=== PATIENT | male | born 1930 | race Caucasian/White ===

== ENCOUNTER 2016-05-27 11:13 | Outpatient (CLI) ==
[2014-09-19 16:38] VITALS: BMI 35.6
--- NOTE | 2016-05-27 12:14 | CT ---
EXAM: CT chest without contrast. HISTORY: Shortness of breath. COMPARISON: 01/01/2014. TECHNIQUE: Multiple axial images of the chest were obtained without intravenous contrast. Images w ere reformatted in the sagittal and coronal planes. FINDINGS: Evaluation for lymphadenopathy is limited due to lack of intravenous contrast. Heart siz e is normal. Atherosclerotic calcifications present. No pericardial effusion identified. Left diaphragm is elevated, and there is chronic, stable left basilar consolidation. Left upper lob e micronodule on axial image 15 is stable. Calcified granulomatous changes are present. The lungs otherwise clear without pleural effusion or pneumothorax. Limited images of the upper abdomen demonstrate stable hepatic cyst. No acute osseous abnormality d etected. Degenerative changes present throughout the spine. Since the prior study, there has been no significant interval change. IMPRESSION: No acute cardiopulmonary process.
[2016-05-27 12:20] LABS: ALBUMIN 3.6 g/dL (3.4-5.0); ANION GAP 12.7; BUN/CREATININE RATIO 22.93; CALCIUM 8.8 mg/dL (8.2-10.2); CREATININE 1.09 mg/dL (0.60-1.10); PHOSPHORUS 2.2 mg/dL (2.3-3.7); POTASSIUM 3.7 mmol/L (3.5-5.1)
== END 2016-05-27 11:14 | disposition home or self-care (01) ==
LOC: RAD 11:13
PROVIDERS: ATTEND General Practice
DX: R05 Cough (principal); R06.02 Shortness of breath; R06.82 Tachypnea, not elsewhere classified
CPT/HCPCS: 36415; 80069; 83880

== ENCOUNTER 2016-08-07 12:21 | Emergency (ER) ==
[2016-08-07 12:30] VITALS: BP 162/94; TEMP 98.2; BMI 34.0
--- NOTE | 2016-08-07 12:42 | ED.PDOC ---
General ED Provider: Dr. ERIC PARTIDA Chief Complaint: Head Laceration Stated Complaint: HEAD LACERATION FORHEAD Time Seen by Physician: 12:27 (NO LOC , NO NECK PAIN ) Mode of Arrival: Walk-In Information Source: Patient, Family Exam Limitations: No limitations [facility] and Triage Documentation Reviewed and Agree: Yes Trauma/Injury Complaint Exam - Head Injury Complaint/Exam Location of Pain: Reports: Forehead (RIGHT NO LOC ) Mechanism of Injury: Reports: Trauma (BLUNT FORCE) Onset/Duration: 30 MIN AGO Symptoms Are: Still present Initial Severity: Mild Current Severity: Mild Aggravating: Reports: None Alleviating: Reports: None Associated Signs and Symptoms: Denies: Confusion, Memory loss, Seizure, Epistaxis, Dental malocclusion, Neck pain, Nausea, Vomiting Loss of Consciousness: None SDH Risk Factors: Present: Male, Elderly Cervical Spine Injury Risk Factors: Present: None Related Surgical History: Reports: None Head Injury Findings: Present: Normal findings (ABRASION FOR HEAD SEE PHOTO) Glascow Coma Scale (see protocol): 15 Focal Weakness: Present: None Focal Sensory Loss: Present: None Gait: Normal Nexus Low Risk Criteria: No post-midline CS tender, No evidence of intoxicat., No Altered LOC, No focal neuro deficit, No distracting injuries Differential Diagnoses: Trauma, Other (ABRASION ) Review of Systems - Review Of Systems Constitutional: Reports: No symptoms Eyes: Reports: No symptoms Ears, Nose, Mouth, Throat: Reports: No symptoms Respiratory: Reports: No symptoms Cardiac: Reports: No symptoms GI: Reports: No symptoms : Reports: No symptoms Musculoskeletal: Reports: No symptoms Skin: Reports: Other (ABRASION FORHEAD ) Neurological: Reports: No symptoms Endocrine: Reports: No symptoms Hematologic/Lymphatic: Reports: No symptoms All Other Systems: Reviewed and Negative Past Medical History - Past Medical History Previously Healthy: Yes Endocrine: Reports: None Cardiovascular: Reports: Hypertension Respiratory: Reports: None Hematological: Reports: None Gastrointestinal: Reports: None Genitourinary: Reports: None Neuro/Psych: Reports: None Musculoskeletal: Reports: None Cancer: Reports: None - Surgical History General Surgical History: Reports: None - Family History Family History: Reports: None - Social History Smoking Status: Never smoker Hx Substance Use: No Alcohol Screening: None - Immunizations Tetanus Shot up to Date: Yes Physical Exam - Physical Exam Appearance: Well-appearing, No pain distress, Well-nourished Eyes: SUSAN, EOMI, Conjunctiva clear ENT: Ears normal, Nose normal, Oropharynx normal Respiratory: Airway patent, Breath sounds clear, Breath sounds equal, Respirations nonlabored Cardiovascular: RRR, Pulses normal, No rub, No murmur GI/: Soft, Nontender, No masses, Bowel sounds normal, No Organomegaly Musculoskeletal: Normal strength, ROM intact, No edema, No calf tenderness Skin: Warm, Dry (3MM ABRASION) Neurological: Sensation intact, Motor intact, Reflexes intact, Cranial nerves intact, Alert, Oriented Psychiatric: Affect appropriate, Mood appropriate Critical Care Note - Critical Care Note Total Time (mins): 0 Course - Course Vital Signs: Temp Pulse Resp BP Pulse Ox 08/07/16 12:24 98.2 F 68 24 162/94 H 95 Departure - Departure Time of Disposition: 12:42 (ABRASION DERMABONDED SEE PHOTOS) Disposition: HOME SELF-CARE Discharge Problem: Injury of head Qualifiers: Encounter type: initial encounter Qualifier Code: (S09.90XA) Unspecified injury of head, initial encounter Abrasion of head Qualifiers: Encounter type: initial encounter Qualifier Code: (S00.91XA) Abrasion of unspecified part of head, initial encounter Instructions: Abrasion (ED), Head Injury (ED) Condition: Good Pt referred to PMD for follow-up: No Additional Instructions: Please call your Family Physician as soon as possible to schedule a follow-up appointment. Allergies/Adverse Reactions: Allergies No Known Drug Allergies Allergy (Unverified 05/27/16 10:35) Home Medications: Ambulatory Orders Naproxen Sodium [Aleve] 220 mg PO BID 10/10/14
[2016-08-07] MEDS ORDERED: TETANUS DIPHTHERIA TOXOIDS IM ONE (12:45)
== END 2016-08-07 12:56 | disposition home or self-care (01) ==
LOC: ED 12:21
DX: S00.81XA Abrasion of other part of head, initial encounter (principal); W22.8XXA Striking against or struck by other objects, initial encounter
CPT/HCPCS: 90471; 99283

== ENCOUNTER 2017-01-27 16:36 | Outpatient (CLI) ==
[2017-01-27 16:48] LABS: BASOPHILS % (AUTO) 0.6 % (0.0-3.0); EOSINOPHILS # (AUTO) 0.1 K/ul (0.0-0.7); EOSINOPHILS % (AUTO) 1.4 % (0.0-7.0); HEMATOCRIT 39.4 % (42.0-52.0); HEMOGLOBIN 13.1 g/dl (14.0-18.0); IMMATURE GRANULOCYTE % (AUTO) 0.2 % (0.0-5.0); LYMPHOCYTES # (AUTO) 1.3 K/uL (0.60-3.4); MEAN CORPUSCULAR HEMOGLOBIN 32.1 pg (27.0-31.0); MEAN CORPUSCULAR HGB CONC 33.2 (31.8-35.4); MEAN CORPUSCULAR VOLUME 96.6 fl (80.0-94.0); MONOCYTES # (AUTO) 0.3 K/uL (0.4-2.0); MONOCYTES % (AUTO) 5.8 (0-10); NEUTROPHILS # (AUTO) 3.4 K/ul (2.0-6.9); PLATELET COUNT 144 10^3/uL (140-440); RED BLOOD COUNT 4.08 10^6/ul (4.70-6.10); WHITE BLOOD COUNT 5.13 K/ul (4.2-10.2)
[2017-01-27 16:54] LABS: BILIRUBIN,URINE Negative (NEGATIVE); KETONES,URINE Trace (NEGATIVE); LEUKOCYTE ESTERASE ,URINE 1+ (NEGATIVE); NITRITE,URINE Positive (NEGATIVE); PROTEIN,URINE Negative (NEGATIVE); URINE, BLOOD Negative (NEGATIVE)
[2017-01-27 16:56] LABS: ADD URINE MICROSCOPIC YES
[2017-01-27 16:57] LABS: BACTERIA,URINE 3+ (NOT PRESENT)
[2017-01-27 17:03] LABS: ALBUMIN 3.8 g/dL (3.4-5.0); ALBUMIN/GLOBULIN RATIO 1.27; BILIRUBIN,TOTAL 0.4 mg/dL (0.00-1.20); BUN/CREATININE RATIO 28.12; CALCIUM 9.2 mg/dL (8.2-10.2); CREATININE 0.96 mg/dL (0.60-1.10); TOTAL PROTEIN 6.8 g/dL (5.8-8.1)
[2017-01-28 07:22] LABS: % FREE PSA 17.7 % (.); PSA, FREE 1.54 ng/mL
== END 2017-01-27 16:37 | disposition home or self-care (01) ==
LOC: LAB 16:36
PROVIDERS: ATTEND General Practice
DX: D64.89 Other specified anemias (principal); R09.89 Other specified symptoms and signs involving the circulatory and respiratory systems; R55 Syncope and collapse; R82.90 Unspecified abnormal findings in urine; Z79.899 Other long term (current) drug therapy; Z12.5 Encounter for screening for malignant neoplasm of prostate
CPT/HCPCS: 36415; 80053; 81001; 85025; 87086

== ENCOUNTER 2017-03-16 16:43 | Outpatient (CLI) ==
--- NOTE | 2017-03-16 18:26 | CT ---
Exam: CT scan of the thorax without contrast. Date: 03/16/2017. Comparison: 01/01/2014. HISTORY: Leg swelling. TECHNIQUE: Helical scan through the thorax was performed without contrast. FINDINGS: The thoracic inlet and axillary regions are normal. There are granulomatous calcification s in the mediastinum. The caliber of the thoracic aorta and cardiac chambers are normal. The spleen and liver have a uniform attenuation. There is redemonstration of a 1.6 x 1.7 cm cyst in the dome of the liver with additional cyst in the left lobe measuring 2.0 x 1.2 cm. The gallbladder is decompres sed. The stomach, pancreas and adrenal glands are normal. Degenerative changes are seen in the thoracic spine. Evaluation at lung window settings demonstrates a stable elevation of the left hemidiaphragm with res ultant atelectasis or consolidation in the left lung base. No suspicious new pulmonary nodules, pleu ral fluid or consolidation is present. Tracheobronchial tree is patent. Impression: No acute intrathoracic findings.. Stable elevation of the left hemidiaphragm with chron ic left basilar scarring. Old granulomatous disease. Simple hepatic cysts as described.
== END 2017-03-16 16:44 | disposition home or self-care (01) ==
LOC: RAD 16:43
PROVIDERS: ATTEND General Practice
DX: M79.89 Other specified soft tissue disorders (principal); R39.15 Urgency of urination; R06.02 Shortness of breath; Z79.899 Other long term (current) drug therapy
CPT/HCPCS: 36415; 80053; 81001; 83880; 85025; 87086

== ENCOUNTER 2017-06-17 09:56 | Outpatient (CLI) | END 2017-06-17 09:57 | disposition home or self-care (01) | LOC: FCC-LAB 09:56 | PROVIDERS: ATTEND General Practice | DX: D64.89 Other specified anemias (principal); R09.89 Other specified symptoms and signs involving the circulatory and respiratory systems; J98.11 Atelectasis; L40.9 Psoriasis, unspecified; G25.81 Restless legs syndrome; R97.20 Elevated prostate specific antigen [PSA]; Z79.899 Other long term (current) drug therapy | CPT/HCPCS: 36415; 80053; 80061; 81001; 85025; 87086 ==

== ENCOUNTER 2018-03-22 15:57 | Outpatient (CLI) | payer OTHER ==
[2018-01-11 16:30] VITALS: BMI 31.3
== END 2018-03-22 15:58 | disposition home or self-care (01) ==
LOC: RHC-LAB 15:57
PROVIDERS: ATTEND General Practice
DX: R05 Cough (principal)
CPT/HCPCS: 87502; 87651

== ENCOUNTER 2018-03-22 16:43 | Outpatient (CLI) | payer OTHER ==
[2018-01-11 16:30] VITALS: BMI 31.3
--- NOTE | 2018-03-23 07:31 | DI ---
EXAM: CHEST FRONTAL AND LATERAL VIEWS HISTORY: Cough. COMPARISON: 01/11/2018 FINDINGS: Heart size within normal limits. Chronically elevated left hemidiaphragm with mild adjace nt atelectasis or pneumonia. Lungs are otherwise clear. Normal vascularity. IMPRESSION: 1. Subtle discoid density in the left base probably represents atelectasis adjacent to the elevated hemidiaphragm. Minimal pneumonia cannot be excluded. Lungs are otherwise clear.
== END 2018-03-22 16:44 | disposition home or self-care (01) ==
LOC: RAD 16:43
PROVIDERS: ATTEND General Practice
DX: R05 Cough (principal)
CPT/HCPCS: 87502; 87651

== ENCOUNTER 2018-03-24 09:54 | Outpatient (CLI) ==
[2018-01-11 16:30] VITALS: BMI 31.3
--- NOTE | 2018-03-24 10:29 | CT ---
EXAM: CT of the chest without contrast History: Short of breath and cough. Comparison: Chest radiograph 03/22/2018, chest CT 03/16/2017 Technique: Multiplanar CT images through the thorax were obtained without the administration of IV c ontrast Findings: Heart size is normal. No pericardial effusion. No thoracic aortic aneurysm. Coronary ca lcifications. No pathologically enlarged thoracic lymph nodes. No change in the chronic elevation o f the left hemidiaphragm with associated adjacent compressive left lower lobe atelectasis. No acute lung infiltrates. No appreciable pleural fluid and no pneumothorax. No suspicious lung masses or helio ng nodules. Within the visualized upper abdomen, multiple hepatic cysts are again seen. Air distended loops of c olon are again seen within the upper abdomen. No acute osseous abnormalities. Degenerative changes of the spine. Impression: 1. No acute intrathoracic process. 2. No change in the chronic elevation of the left hemidiaphragm with adjacent left lower lobe compre ssive atelectasis. 3. Coronary artery disease. 4. No change in the hepatic cysts. 5. Air distended loops of colon within the upper abdomen probably related to ileus
== END 2018-03-24 09:55 | disposition home or self-care (01) ==
LOC: RAD 09:54
PROVIDERS: ATTEND General Practice
DX: J98.4 Other disorders of lung (principal); R06.02 Shortness of breath